=== PATIENT | female | born 1980 | race Caucasian/White ===

== ENCOUNTER 2017-11-17 09:47 | Emergency (ER) | payer OTHER ==
[2017-11-17 09:55] VITALS: O2SAT 97
[2017-11-17] MEDS ORDERED: LET GEL TOPICAL 1 EA SYR TP ONE (10:12)
[2017-11-17] MEDS ORDERED: OXYMETAZOLINE 30 ML NASAL SPRAY EACHNARE ONE (10:12)
[2017-11-17] MEDS ORDERED: SILVER NITRATE APPLICATOR 1 APPL TP ONE (10:12)
--- NOTE | 2017-11-17 10:15 | EDPHY ---
H & P Time Seen by Provider: 11/17/17 10:00 HPI/ROS: CHIEF COMPLAINT: Nosebleed HISTORY OF PRESENT ILLNESS: 36-year-old female with no coagulopathic disorder, no anticoagulant use, seen at [facility] emergency department yesterday for recurrent left-sided epistaxis at which point rapid rhino packing was placed. She presents to the ER complaining of breakthrough bleeding as well as right-sided bleeding this morning, currently hemostatic. No dizziness. No digital trauma. PHYSICAL EXAM (Prior to examination, patient consented to physical exam, hands were washed and my usual and customary physical exam procedures followed) 1) GENERAL: Well-developed, well-nourished, alert and oriented. Appears to be in no acute distress. 2) HEAD: Normocephalic 3) HEENT: sclera anicteric . Right nostril is clear no areas of friability no active bleeding. Left nostril packing in place. 4) LUNGS: Breathing comfortably. Smoking Status: Current every day smoker Constitutional: Initial Vital Signs Temperature (C) 36.7 C 11/17/17 09:53 Heart Rate 86 11/17/17 09:53 Respiratory Rate 16 11/17/17 09:53 Blood Pressure 150/88 H 11/17/17 09:53 O2 Sat (%) 97 11/17/17 09:53 O2 Delivery Mode Room Air Allergies/Adverse Reactions: acyclovir Allergy (Verified 11/17/17 09:51) Home Medications: Medication Instructions Recorded Lamictal Unk Dose 10/06/12 Methylphenidate HCl [Ritalin 5mg 5 mg PO DAILY 10/06/12 (RX)] buPROPion [Wellbutrin 100mg (RX)] 100 mg PO DAILY 10/06/12 MDM/Departure - [facility] Procedures: Procedure: Epistaxis control. Indication: Recurrent epistaxis with rapid rhino packing placed Risks, benefits, alternatives discussed with patient and consent obtained. The packing was removed. The left nares was anesthetized with LAT with Afrin placement as well. The anterior epistaxis was identified. The patient was treated with silver nitrate cautery. Following the procedure the patient was re -examined and the bleeding was well controlled. The patient tolerated the procedure well. The procedure was performed by myself. At discharge the patient's nose is hemostatic. Medications Given: Discontinued Medications Oxymetazoline HCl (Afrin Nasal [place]) 2 sprays EACHNARE EDNOW ONE Stop: 11/17/17 10:13 Last Admin: 11/17/17 10:18 Dose: 2 sprays Silver Nitrate/Potassium Nitrate (Silver Nitrate Applicator) 3 each TP EDNOW ONE Stop: 11/17/17 10:13 Last Admin: 11/17/17 10:18 Dose: 3 each Tetracaine/Epinephrine/Lidocaine (Let Gel Topical) 1 ea TP EDNOW ONE Stop: 11/17/17 10:13 Last Admin: 11/17/17 10:18 Dose: 1 ea ED Course/Re-evaluation: 10:13 a.m.: I reviewed the medical records from [facility] showing the patient had left rapid rhino packing. Here in emergency department the rapid rhino was removed by myself as she complained of breakthrough bleeding with this in. Visualization reveals currently hemostatic although there is an area of friability at left Kiesselbach's plexus with no active bleeding, no bleeding on the right side or areas of friability. I discussed with the patient options at this time which include, but are not limited to, no further intervention from the emergency department, silver nitrate cautery, packing. She would like cauterization. She has been informed that cauterization may cause further bleeding and that she may ultimately require packing. She verbalized understanding of these risks and wishes to proceed. 10:54 a.m.: Silver nitrate cauterization complete, patient will be observed for a period of time 11:29 a.m.: Patient remains hemostatic, plan will be discharge home. She has a pre-existing relationship with Dr. Natalie Chavez with whom she will follow up on Sunday (today is Sunday). In the meantime usual and customary epistaxis precautions and instructions provided. She feels comfortable with this plan. Care of patient under supervision of secondary Supervising physician Dr Ori Braxton. - Depart Disposition: Home, Routine, Self-Care Clinical Impression: Epistaxis Condition: Good Instructions: Nosebleed (ED) Additional Instructions: If you develop further episodes of nosebleed, place direct pressure for 20 minutes. If the bleeding continues, seek medical attention. Referrals: Natalie Chavez MD [Medical Doctor] - 11/19/17
[2017-11-17 11:52] VITALS: BP 134/92; PULSE 85; RESP 18; TEMP 97.9
== END 2017-11-17 11:51 | disposition home or self-care (01) ==
PROC: 3E09XTZ Introduction of Destructive Agent into Nose, External Approach (ICD-10-PCS; principal; 2017-11-17)
DX: R04.0 Epistaxis (principal); F17.200 Nicotine dependence, unspecified, uncomplicated

== ENCOUNTER 2017-11-17 15:43 | Emergency (ER) | payer OTHER ==
[2017-11-17] MEDS ORDERED: OXYMETAZOLINE 30 ML NASAL SPRAY EACHNARE ONE (15:56)
--- NOTE | 2017-11-17 15:56 | EDPHY ---
H & P Smoking Status: Current every day smoker Time Seen by Provider: 11/17/17 15:53 HPI/ROS: CHIEF COMPLAINT: Recurrent epistaxis HISTORY OF PRESENT ILLNESS: 36 year female seen by myself in the emergency department earlier today for recurrent epistaxis at which point silver nitrate cautery was performed resulting in hemostasis, returns to the ER complaining of breakthrough bleeding on same side. She was seen in the emergency department at [facility] yesterday with placement of rapid rhino packing and noted intermittent breakthrough bleeding which brought her to the ER at [facility] this morning. No dizziness. No digital trauma. No headache. No chest pain. No nausea or vomiting. PHYSICAL EXAM (Prior to examination, patient consented to physical exam, hands were washed and my usual and customary physical exam procedures followed) 1) GENERAL: Well-developed, well-nourished, alert and oriented. Appears anxious. 2) HEAD: Normocephalic 3) HEENT: sclera anicteric . Nasal clip in place. Active anterior left bleeding. No right-sided bleeding. 4) LUNGS: Breathing comfortably. (Marlen Soria) Constitutional: Initial Vital Signs Temperature (C) 36.9 C 11/17/17 15:50 Heart Rate 75 11/17/17 15:50 Respiratory Rate 18 11/17/17 15:50 Blood Pressure 142/88 H 11/17/17 15:50 O2 Sat (%) 98 11/17/17 15:50 O2 Delivery Mode Room Air Allergies/Adverse Reactions: acyclovir Allergy (Verified 11/17/17 15:49) Home Medications: Medication Instructions Recorded Lamictal Unk Dose 10/06/12 Methylphenidate HCl [Ritalin 5mg 5 mg PO DAILY 10/06/12 (RX)] buPROPion [Wellbutrin 100mg (RX)] 100 mg PO DAILY 10/06/12 Cephalexin [Keflex] 500 mg PO TID 7 Days cap 11/17/17 MDM/Departure - [facility] Procedures: 4:09 p.m. Procedure: Epistaxis control. Indication: nosebleed not controlled by direct pressure with breakthrough bleeding from chemical cauterization Risks, benefits, alternatives discussed with patient and consent obtained. Rapid rhino 5.5 cm anterior placement by myself resulting in hemostasis. The procedure was performed by myself. (Marlen Soria) Medications Given: Discontinued Medications Morphine Sulfate (Morphine) 5 mg IVP EDNOW ONE Stop: 11/17/17 17:54 Last Admin: 11/17/17 17:54 Dose: 5 mg Ondansetron HCl (Zofran) 4 mg IVP EDNOW ONE Stop: 11/17/17 18:31 Last Admin: 18 18:31 Dose: 4 mg Ondansetron HCl (Zofran Odt 4 Mg Prepack#2) 1 btl TAKEHOME EDNOW ONE Stop: 11/17/17 18:37 Last Admin: 11/17/17 18:44 Dose: 1 btl Oxymetazoline HCl (Afrin Nasal [place]) 2 sprays EACHNARE EDNOW ONE Stop: 11/17/17 15:57 Last Admin: 11/17/17 16:19 Dose: 2 sprays ED Course/Re-evaluation: 3:57 p.m.: Old medical records reviewed. Patient has active bleeding left side. Plan will be packing. 4:45 p.m.: Re-evaluation, rapid rhino packing in place for 1 hr and patient notes continued ana laura packing bleeding and is swallowing blood. The balloon is adequately inflated. Discussed with Dr Jenkins in ER. Concern over possible posterior epistaxis. 450 pm: Consultation with circulating nurse for Dr. Natalie Chavez who is currently in the operating room will come to the ER afterward. Patient has previously seen Dr. Natalie Chavez for other ENT related issues. 5:06 p.m.: Called to the patient's bedside as she was having new active bleeding from the right side. Clip in place. 5:30 pm: Care turned over to Dr Jenkins, awaiting ENT consult. (Marlen Soria) - Depart Disposition: Home, Routine, Self-Care Clinical Impression: Epistaxis Condition: Good Instructions: Ondansetron (By mouth), Nosebleed (ED) Additional Instructions: Follow-up with Dr. Chavez on Sunday as discussed If symptoms worsen or new symptoms develop return to the emergency room for recheck Prescriptions: Cephalexin [Keflex] 500 mg PO TID 7 Days cap Referrals: Denisse Driver FNP [Primary Care Provider] - As per Instructions Natalie Chavez MD [Medical Doctor] - As per Instructions
[2017-11-17 17:23] LABS: PLATELET COUNT 239 10^3/uL (150-400)
[2017-11-17 17:32] LABS: INR 0.98 (0.83-1.16); PROTIME(PATIENT) 13.2 SEC (12.0-15.0)
[2017-11-17 18:23] VITALS: RESP 16
[2017-11-17] MEDS ORDERED: ONDANSETRON 4 MG/2 ML VIAL ONE (18:29)
[2017-11-17] MEDS ORDERED: ONDANSETRON 4 MG/2 ML VIAL IVP ONE (18:30)
[2017-11-17] MEDS ORDERED: ONDANSETRON 4MG PREPACK#2 BTL TAKEHOME ONE (18:36)
[2017-11-17 18:51] VITALS: BP 148/95; PULSE 73; TEMP 98.2; O2SAT 94
--- NOTE | 2017-11-17 21:19 | GCON ---
[f rep st] CONSULTATION DATE OF CONSULTATION: 11/17/2017 CHIEF COMPLAINT: Epistaxis. HISTORY OF PRESENT ILLNESS: This is a 36-year-old woman who has had intermittent epistaxis since night. She states this started late night, just kind of intermittently, when she was asleep. She did not have any trauma or other significant cause that she noticed. It seemed to come and go throughout the night. She eventually went to the [facility] ER Sunday , late morning. They placed a Rhino Rocket on the left. She then states that it has continued to bleed intermittently around that and so she came into the ER at [facility] this morning. She was seen by Dr. Armstrong who removed that pack and then saw some area that was bleeding anteriorly along the septum on the left, so he cauterized this. She had no bleeding, so she was sent home. She states she did well for a couple hours until she was just sitting on the couch and it started gushing again from the left side. She came back to the ER. Another Rhino Rocket was placed on the left and it seemed to initially control it, although I was then called secondary to some bleeding around the pack. She states that it was significantly bleeding. She complains of some pain and a headache from the pack. She does not taste it or draining down the back part of her throat anymore. She does state that when she held anterior pressure during all these episodes it did slow down and did not seem to continue down the back part of her throat, even though she could taste blood. It seemed to be mostly anteriorly. She denies nausea or vomiting. No dizziness. No chest pain. Currently, she has a left-sided Rhino Rocket in place. She does complain of some ear fullness. PAST MEDICAL HISTORY: noncontributory ALLERGY: Acyclovir. PAST SURGICAL HISTORY: She has never had surgery on her nose. PHYSICAL EXAM: VITAL SIGNS: Stable. She is on room air, saturating in the high 90s. GENERAL: She is awake, alert, in no apparent distress. NEUROLOGIC: Cranial nerves 2-12 are grossly intact. HEENT: Pupils are equal, round, and reactive to light. Extraocular movements are intact. She does have a Rhino Rocket in the left side. I evaluated the right side and suctioned some clot from the right nasal cavity through anterior rhinoscopy with a speculum and a straight Manning-tip suction. Once that was done, I was able to see into the nasopharynx without any significant more clot. I then looked in the oropharynx. The tongue is mobile and midline. Palate elevates symmetrically. She has no blood draining down the posterior pharyngeal wall. NECK: Shows no masses and trachea is midline. PROCEDURE: Since she does have some difficulty controlling this with the packs placed. The air was deflated. She had no active bleeding through that posteriorly and then the pack was removed. Once this was done, I performed an anterior rhinoscopy on the left side. I used a Manning-tip suction to suction out some clot in the posterior nasopharynx until I was able to see the posterior nasopharynx and this was clear. She was noted to have some oozing around the anterior portion of the septum on the left. It was not overly brisk , but it is definitely oozing from this region. I do not see any other obvious areas of bleeding and so after verbal informed consent I repacked her with a Merocel pack that was cut down to size. It was coated with bacitracin and then Surgicel was placed around it. This pack was placed and then it was inflated with Afrin. I then placed some Surgicel around the edges of the pack along the septum. She had no active bleeding. She tolerated the procedure well and there was no bleeding down the back part of her throat. ASSESSMENT AND PLAN: This is a patient who has recurrent epistaxis. I think this is very likely an anterior bleed. I discussed with her that it is very rare that it would be a posterior bleed and it does seem that when she places anterior pressure this slows. I also saw some area that was bleeding anteriorly. Since she has had the pack placed and replaced so many times, I really urged her to try to keep this pack in place. Obviously, if it starts bleeding again, that is something that we would have to deal with at that point, but I think it would be very unlikely. If she does have some bleeding, she is to re-inflate the pack with Afrin and then hold pressure anteriorly for about 10 minutes. She is not bleeding now and she has no significant comorbidities that would cause her to continue to bleed. Also of note, her labs done this afternoon show normal H and H at 13.5 and 39.7 , white count is normal, and platelets are 239. Coagulation profile shows no abnormalities. I think she can be discharged home. Needs to go home on antibiotics while the pack is in place. She has an appointment with me on Sunday morning where I will take out the pack and take a look. She agrees and is happy with this plan. /[id number]/MODL MTDD
== END 2017-11-17 18:51 | disposition home or self-care (01) ==
PROC: 3E09XTZ Introduction of Destructive Agent into Nose, External Approach (ICD-10-PCS; principal; 2017-11-17)
DX: R04.0 Epistaxis (principal); F17.200 Nicotine dependence, unspecified, uncomplicated
CPT/HCPCS: 96374; J2270; J2405